=== PATIENT | female | born 1985 | race Caucasian/White ===

== ENCOUNTER 2018-03-15 18:32 | Emergency (ER) | payer OTHER ==
--- NOTE | 2018-03-15 19:29 | ED Physician Documentation ---
PD HPI SKIN - Stated complaint Stated Complaint: HOT CHEST/POST - Chief complaint Chief Complaint: General - History obtained from History obtained from: Patient - History of Present Illness Timing - onset: Today Timing - details: Abrupt onset Location: Other (4 days post and is breast feeding. Today has feeling of both breasts firm, hot, and tender, without feeling improved after child nurses. ) Quality / character: Painful, Swelling. No: Discolored Associated symptoms: Fever (today) Similar symptoms before: Has not had sx before Recently seen: Other ( 4 days ago without episiotomy. No dysuria. No diarrhea. Denies abd pain nor vaginal discharge purulent, and her locia drainage is decreasing.) Review of Systems Constitutional: reports: Fever Nose: denies: Rhinorrhea / runny nose, Congestion Throat: denies: Sore throat Respiratory: denies: Cough GI: denies: Vomiting, Diarrhea : denies: Dysuria, Frequency Skin: denies: Rash PD PAST MEDICAL HISTORY - Past Medical History Past Medical History: No - Past Surgical History Past Surgical History: No - Present Medications Home Medications: Ambulatory Orders Medication Instructions Recorded Confirmed Cephalexin [Keflex] 500 mg PO QID #28 capsule 03/15/18 Citalopram [CeleXA] 10 mg PO DAILY 03/15/18 03/15/18 oxyCODONE/ACET 5/325 [Percocet 5 03/15/18 mg/325 mg] - Allergies Allergies/Adverse Reactions: Allergies Allergy/AdvReac Type Severity Reaction Status Date / Time No Known Drug Allergies Allergy Verified 03/15/18 18:46 - Social History Does the pt smoke?: No Smoking Status: Never smoker Does the pt drink ETOH?: No Does the pt have substance abuse?: No - Immunizations Immunizations are current?: Yes PD ED PE NORMAL - Vitals Vital signs reviewed: Yes - General General: Alert and oriented X 3, No acute distress, Well developed/nourished - HEENT HEENT: Pharynx benign - Neck Neck: Supple, no meningeal sign, No adenopathy - Cardiac Cardiac: No murmur. No: RRR (tachy but regular) - Respiratory Respiratory: Clear bilaterally - Abdomen Abdomen: Soft, Non tender - Female Female : [employer] present (), Other (both breasts with firmness, and particular tenderness superior aspects of both. No redness per se, but does have warmth of skin bilaterally. normal nipple drainage, does not look purulent. ) - Back Back: No CVA TTP - Derm Derm: Normal color, Warm and dry, No rash Results - Vitals Vitals: Vital Signs - 24 hr 03/15/18 03/15/18 18:42 20:04 Temperature 37.9 C H 37.7 C H Heart Rate 115 H 107 H Respiratory 18 16 Rate Blood Pressure 145/82 H 136/91 H O2 Saturation 98 97 Oxygen O2 Source Room air PD MEDICAL DECISION MAKING - ED course Complexity details: considered differential (could consider engorgement with inflammation and could do extra pumping in addition to feeing if child not draining breasts enough, however does not account for fever, so that would decide that it is developing mastitis even though not focal redness per se. ), d /w patient - Sepsis Event Vital Signs: Vital Signs - 24 hr 03/15/18 03/15/18 18:42 20:04 Temperature 37.9 C H 37.7 C H Heart Rate 115 H 107 H Respiratory 18 16 Rate Blood Pressure 145/82 H 136/91 H O2 Saturation 98 97 Oxygen O2 Source Room air Departure - Departure Disposition: 01 Home, Self Care Clinical Impression: Acute mastitis Condition: Stable Record reviewed to determine appropriate education?: Yes Instructions: ED Breast Infec Follow-Up: BERTHA PEREZ DO [Primary Care Provider] - Prescriptions: Cephalexin [Keflex] 500 mg PO QID #28 capsule Comments: Warm moist towels to the breasts periodically. Continue breast-feeding. Use an anti-inflammatory such as ibuprofen 600 mg 3 times a day for the inflammation. Cephalexin as directed 4 times a day for the infection. Recheck if not improving over the next couple of days. Return sooner if sicker. Discharge Date/Time: 03/15/18 20:17
[2018-03-15] MEDS ORDERED: IBUPROFEN 600 MG TABLET PO STA (19:48)
[2018-03-15] MEDS ORDERED: cephALEXin 250 MG CAPSULE PO STA (19:49)
[2018-03-15 20:05] VITALS: BP 136/91
== END 2018-03-15 20:17 | disposition home or self-care (01) ==
LOC: ED 18:32
DX: O91.22 Nonpurulent mastitis associated with the puerperium (principal)
CPT/HCPCS: 99283; A9270

== ENCOUNTER 2022-04-29 11:36 | Emergency (ER) | payer OTHER ==
[2022-04-29] MEDS ORDERED: tiZANidine 4 MG TABLET PO STA (13:15)
[2022-04-29] MEDS ORDERED: TRIAMCINOLONE 40 MG/ML VIAL IM STA (13:15)
[2022-04-29] MEDS ORDERED: ACETAMINOPHEN 325 MG TABLET PO STA (13:15)
--- NOTE | 2022-04-29 13:50 | ED Physician Documentation ---
PD HPI BACK PAIN - Stated complaint Stated Complaint: NECK PX - Chief complaint Chief Complaint: General - History obtained from History obtained from: Patient - History of Present Illness Timing - onset: How many days ago (3) Timing - duration: Days (3) Timing - details: Abrupt onset (Awoke from sleep in the morning with pain in the left lower cervical to upper thoracic area radiating to the left shoulder. Has persisted despite topical treatment and ibuprofen.), Still present Location: Lower, Left Quality: Pain, Spasm, Aching Associated symptoms: Other (no radiation of the pain). No: Fever, Weakness, Numbness Worsened by: Movement, Twisting, Palpation Contributing factors: No: Twisting, Trauma Similar symptoms before: Has not had sx before Review of Systems Constitutional: denies: Fever, Chills Nose: denies: Rhinorrhea / runny nose, Congestion Throat: denies: Sore throat Cardiac: denies: Chest pain / pressure Respiratory: denies: Cough GI: denies: Abdominal Pain, Nausea, Vomiting Skin: denies: Rash, Lesions Neurologic: denies: Altered mental status, Headache PD PAST MEDICAL HISTORY - Past Medical History Cardiovascular: None Respiratory: None Endocrine/Autoimmune: None - Past Surgical History Past Surgical History: No - Present Medications Home Medications: Ambulatory Orders Medication Instructions Recorded Confirmed Citalopram [CeleXA] 10 mg PO DAILY 03/15/18 03/15/18 cephALEXin [Keflex] 500 mg PO QID #28 capsule 03/15/18 oxyCODONE/ACET 5/325 [Percocet 5 03/15/18 mg/325 mg] HYDROcod/ACETAM 5/325 [[place] 5/325] 1 ea PO Q6H PRN #20 tablet 04/29/22 tiZANidine [Zanaflex] 4 mg PO Q8H PRN #25 tablet 04/29/22 - Allergies Allergies/Adverse Reactions: Allergies Allergy/AdvReac Type Severity Reaction Status Date / Time No Known Drug Allergies Allergy Verified 03/15/18 18:46 - Social History Does the pt smoke?: No Smoking Status: Never smoker Does the pt drink ETOH?: No Does the pt have substance abuse?: No - Immunizations Immunizations are current?: Yes PD ED PE NORMAL - Vitals Vital signs reviewed: Yes - General General: Alert and oriented X 3, Well developed/nourished, Other (appears uncomfortable and holding neck stiffly, slightly cocked to the left. ) - Neck Neck: No bony TTP, No adenopathy, Other (left trapezius muscle tender mid to lower aspect, almost suprascapular. No rash nor redness. ) - Cardiac Cardiac: RRR, No murmur - Respiratory Respiratory: Clear bilaterally - Derm Derm: Normal color, Warm and dry - Neuro Neuro: Alert and oriented X 3, No motor deficit, No sensory deficit Results - Vitals Vitals: Oxygen O2 Source Room air PD MEDICAL DECISION MAKING - ED course Complexity details: considered differential (left lower neck lateral pain without red flags on history/exam. Can treat with meds. She has a very tedner trigger spot in muscle, so did trigger point injection with kenalog and marcaine after cleansing skin. ), d/w patient Departure - Departure Disposition: 01 Home, Self Care Clinical Impression: Acute upper back pain Condition: Stable Record reviewed to determine appropriate education?: Yes Instructions: ED Neck Pain No Trauma Follow-Up: BERTHA PEREZ DO [Primary Care Provider] - Prescriptions: HYDROcod/ACETAM 5/325 [[place] 5/325] 1 ea PO Q6H PRN #20 tablet PRN Reason: Pain tiZANidine [Zanaflex] 4 mg PO Q8H PRN #25 tablet PRN Reason: Spasms Comments: I would continue with the ibuprofen 600 mg 3 times daily with food. Local tr eatment such as massage and chiropractic are good as well as the topical Salonpas. We can add tizanidine muscle relaxant 3 times daily to help with spasms. Also add hydrocodone/acetaminophen every 6 hours if needed for pain. I also did injection in the tender muscle spot with a steroid medicine called triamcinolone. That should be effective for several days at least. Presumably the combination of this will improve your symptoms over the next several days with resolution over 3 to 5 days. Recheck if not improved in that timeframe. I sent your prescription to [facility] in [place]. I am prescribing a short course of narcotic pain medication for you. These are potentially dangerous and addictive medications that should be used carefully. These medications may constipate you. Take an epya-lja-dycmfji stool softener such as docusate twice daily with plenty of water while taking these medications. If you go 24 hours without a bowel movement, take aubv-jtu-nexuwgu MiraLAX, per package instructions. Do not drink or drive while taking these medications. If you received narcotic or sedating medications while in the emergency department do not drive for 24 hours. Store this medication in a safe, secure place and out of reach of children. It is a violation of federal law to give or sell this medication to another person or to use in a manner other than prescribed. The ED will not refill narcotic prescriptions, including prescriptions lost or stolen. You can dispose of unwanted medications at the [facility]'s office or at several pharmacies such as [facility]. Discharge Date/Time: 04/29/22 14:33
[2022-04-29 14:33] VITALS: BP 100/64
== END 2022-04-29 14:33 | disposition home or self-care (01) ==
LOC: ED 11:36
DX: M54.89 Other dorsalgia (principal)
CPT/HCPCS: 99283; 99284; A9270

== ENCOUNTER 2022-08-19 12:55 | Emergency (ER) | payer OTHER ==
[2022-08-19 13:31] LABS: RAPID STREP SCREEN Negative (Negative)
[2022-08-19 14:10] LABS: B. PARAPERTUSSIS- RESP PCR PAN NOT DETECTED; B. PERTUSSIS- RESP PCR PANEL NOT DETECTED; C. PNEUMONIAE- RESP PCR PANEL NOT DETECTED; CORONAVIRUS 229E-RESP PCR NOT DETECTED; CORONAVIRUS HKU1-RESP PCR NOT DETECTED; CORONAVIRUS NL63-RESP PCR NOT DETECTED; CORONAVIRUS OC43-RESP PCR NOT DETECTED; HUMAN METAPNEUMOVIRUS NOT DETECTED; INFLUENZA A- RESP PCR PANEL NOT DETECTED; INFLUENZA B - RESP PCR PANEL NOT DETECTED; M. PNEUMONIAE- RESP PCR PANEL NOT DETECTED; PARAINFLUENZA VIRUS 1 NOT DETECTED; PARAINFLUENZA VIRUS 2 DETECTED; PARAINFLUENZA VIRUS 3 NOT DETECTED; PARAINFLUENZA VIRUS 4 NOT DETECTED; RHINOVIRUS/ENTEROVIRUS NOT DETECTED; RSV- RESP PCR PANEL NOT DETECTED; SARS-CoV-2 -RESP PCR PANEL NOT DETECTED
--- NOTE | 2022-08-19 14:40 | ED Physician Documentation ---
PD HPI URI - Stated complaint Stated Complaint: SORE THROAT,COUGH,EAR PX - Chief complaint Chief Complaint: Heent - History obtained from History obtained from: Patient - History of Present Illness Timing - onset: How many weeks ago (1) Timing duration: Weeks (1) Timing details: Gradual onset Pain level max: 4 Pain level now: 4 Associated symptoms: Nasal congestion, Rhinorrhea, Dry cough. No: Fever Contributing factors: Sick contact - Additional information Additional information: 37-year-old female presents the emergency department with nasal congestion, cough, rhinorrhea. No fevers. No vomiting. No diarrhea. Denies any possibility of . No abdominal pain. Review of Systems Constitutional: denies: Fever Nose: reports: Rhinorrhea / runny nose, Congestion GI: denies: Vomiting, Diarrhea Skin: denies: Rash Musculoskeletal: denies: Neck pain, Back pain Neurologic: denies: Headache PD PAST MEDICAL HISTORY - Past Medical History Cardiovascular: None Respiratory: None Endocrine/Autoimmune: None - Past Surgical History Past Surgical History: No - Present Medications Home Medications: Ambulatory Orders Medication Instructions Recorded Confirmed Citalopram [CeleXA] 10 mg PO DAILY 03/15/18 03/15/18 cephALEXin [Keflex] 500 mg PO QID #28 capsule 03/15/18 oxyCODONE/ACET 5/325 [Percocet 5 03/15/18 mg/325 mg] HYDROcod/ACETAM 5/325 [[place] 5/325] 1 ea PO Q6H PRN #20 tablet 04/29/22 tiZANidine [Zanaflex] 4 mg PO Q8H PRN #25 tablet 04/29/22 Benzonatate [Tessalon] 200 mg PO TID PRN #30 cap 08/19/22 Cetirizine HCl/Pseudoephedrine 1 each PO BID PRN #30 tab 08/19/22 [Zyrtec-D Tablet] - Allergies Allergies/Adverse Reactions: Allergies Allergy/AdvReac Type Severity Reaction Status Date / Time No Known Drug Allergies Allergy Verified 08/19/22 13:06 - Social History Does the pt smoke?: No Smoking Status: Never smoker Does the pt drink ETOH?: No Does the pt have substance abuse?: No - Immunizations Immunizations are current?: Yes PD ED PE NORMAL - Vitals Vital signs reviewed: Yes - General General: Alert and oriented X 3, No acute distress - HEENT HEENT: Ears normal, Moist mucous membranes, Pharynx benign - Neck Neck: Supple, no meningeal sign - Cardiac Cardiac: RRR, Strong equal pulses - Respiratory Respiratory: No respiratory distress, Clear bilaterally - Abdomen Abdomen: Soft, Non tender, Non distended - Derm Derm: Warm and dry, No rash - Extremities Extremities: No edema, No calf tenderness / cord - Neuro Neuro: Alert and oriented X 3 - Psych Psych: Normal mood, Normal affect Results - Vitals Vitals: Vital Signs - 24 hr 08/19/22 08/19/22 13:05 14:59 Temperature 36.9 C 36.8 C Heart Rate 89 88 Respiratory 14 14 Rate Blood Pressure 137/82 H 130/80 O2 Saturation 96 98 Oxygen O2 Source Room air - Labs Labs: Laboratory Tests 08/19/22 08/19/22 13:10 13:10 Nasal Adenovirus (PCR) NOT DETECTED Nasal B. parapertussis DNA (PCR) NOT DETECTED Nasal Coronavir 229E PCR NOT DETECTED Nasal Coronavir HKU1 PCR NOT DETECTED Nasal Coronavir NL63 PCR NOT DETECTED Nasal Coronavir OC43 PCR NOT DETECTED Nasal Enterovir/Rhinovir PCR NOT DETECTED Nasal Influenza B PCR NOT DETECTED Nasal Influenza A PCR NOT DETECTED Nasal Parainfluen 1 PCR NOT DETECTED Nasal Parainfluen 2 PCR DETECTED A Nasal Parainfluen 3 PCR NOT DETECTED Nasal Parainfluen 4 PCR NOT DETECTED Nasal RSV (PCR) NOT DETECTED Nasal B.pertussis DNA PCR NOT DETECTED Nasal C.pneumoniae (PCR) NOT DETECTED Dom Human Metapneumo PCR NOT DETECTED Nasal M.pneumoniae (PCR) NOT DETECTED Nasal SARS-CoV-2 (PCR) NOT DETECTED Group A Strep Rapid Negative PD Medical Decision Making - ED course Complexity details: considered differential, d/w patient ED course: 37-year-old female positive for human metapneumovirus. She is very well- appearing, nontoxic. Afebrile. No hypoxia. No respiratory distress. We will place on decongestants and cough medication for home. We will continue supportive care. No evidence of pneumonia clinically. Patient counseled regard ing signs and symptoms for which I believe and urgent re-evaluation would be necessary. Patient with good understanding of and agreement to plan and is comfortable going home at this time This document was made in part using voice recognition software. While efforts are made to proofread this document, sound alike and grammatical errors may occur. Departure - Departure Disposition: 01 Home, Self Care Clinical Impression: Parainfluenza Condition: Good Instructions: ED Viral Syndrome Follow-Up: BERTHA PEREZ DO [Primary Care Provider] - Within 1 week Prescriptions: Benzonatate [Tessalon] 200 mg PO TID PRN #30 cap PRN Reason: Cough Cetirizine HCl/Pseudoephedrine [Zyrtec-D Tablet] 1 each PO BID PRN #30 tab PRN Reason: nasal congestion Comments: Please follow-up with your doctor for further care. Return if you worsen. You have tested positive for parainfluenza today which is a viral upper respiratory infection. Discharge Date/Time: 08/19/22 14:59
[2022-08-19 15:00] VITALS: BP 130/80
== END 2022-08-19 14:59 | disposition home or self-care (01) ==
LOC: ED 12:55
DX: B34.8 Other viral infections of unspecified site (principal); Z20.822 Contact with and (suspected) exposure to COVID-19
CPT/HCPCS: 87070; 87077; 87430; 87633; 99283

== ENCOUNTER 2023-04-29 19:34 | Outpatient (CLI) | payer OTHER | END 2023-04-29 19:35 | disposition home or self-care (01) | LOC: SC 19:34 | PROVIDERS: ATTEND Nurse Practitioner Family | DX: G47.33 Obstructive sleep apnea (adult) (pediatric) (principal); E66.9 Obesity, unspecified; Z68.30 Body mass index [BMI] 30.0-30.9, adult; R00.0 Tachycardia, unspecified; F32.A Depression, unspecified | CPT/HCPCS: 95810 ==

== ENCOUNTER 2023-05-28 14:13 | Outpatient (CLI) | payer OTHER ==
--- NOTE | 2023-05-28 14:29 | Sleep Patient Instructions ---
Sleep Center Visit Summary - Patient Visit Information Reason for Visit: Sleep study follow-up - Patient Instructions Additional Instructions: You are to start Positional therapy to control your sleep apnea. You may obtain positional belts or other commercial devices online. You may also use pillows to position yourself on your side or a T shirt with balls sewn into the back to help keep you on your side to sleep. We would like to follow up with you in a month to check effectiveness of therapy. Please call office to schedule a follow up appointment in the sleep care office [one month after obtaining new device]. - Clinic Information Contact: [facility] [address] [place] [email or web address] T: [phone]
--- NOTE | 2023-05-28 14:35 | SLEEP CARE CONSULTATION ---
Information from patient questionnaire entered by Alicia Troncoso. I have reviewed and concur with the information entered by Alicia Troncoso. This document represents the service I personally performed and the decisions made by , Lavinia Lee ARNP. History of Present Illness Service Date and Time: 05/28/2023 1413 Initial [place] Sleepiness Scale score: 13 (04/04/2023) Current [place] Sleepiness Scale score: 10 (05/28/23) Additional HPI information: ZELDA LUZ returns for follow up and results of the recently performed polysomnography. The sleep study showed mild obstructive sleep apnea with an average AHI of 6.3 and ronnie oxygen saturation of 87%. Cardiac monitoring showed NSR with occasional tachycardia. I explained the pathophysiology behind obstructive sleep apnea. We then spent quite a bit of time discussing different treatment options. For mild obstructive sleep apnea, surgery and oral appliance are alternatives to nasal CPAP therapy but in moderate or severe cases, nasal CPAP is the most effective and reliable treatment. Because apnea is primarily in supine position, then positional management therapy could be effective. Methods discussed such as positioning with pillows, using a T-shirt with tennis balls in the back or commercial products that have a pillow format on back to prevent supine sleep. I reviewed the impact of weight changes on sleep apnea and strongly recommended losing weight. Patient counseled not drink alcohol less than 4 hours before bedtime as it can increase snoring and apnea. Patient was cautioned about risks of drowsy driving until sleepiness symptoms resolve. Patient denies drowsy driving. Sleep Study - Results Type of Sleep Study: Polysomnography (COMPLETED 04/29/23) Prior sleep studies: No Polysomnography/Home Sleep Study results: IMPRESSION: The quality of the study is good. The patient had normal sleep efficiency. The sleep architecture was abnormal for sleep fragmentation and reduced amount of time spent in REM and slow wave sleep (N3). Respiratory monitoring showed mild obstructive sleep apnea-hypopnea (AHI = 6.3) associated with frequent arousals, oxyhemoglobin desaturation and mild hypoxia (ronnie oxygen saturation of 87%). The respiratory events occurred almost exclusively during supine sleep (supine AHI = 8.8; non-supine = 1.59). Snore was light to moderate in intensity. There was no significant periodic leg movement of sleep. Cardiac rhythm was normal sinus rhythm with occasional tachycardia (maximum heart rate of 119 beats per minute). No abnormal behavior (parasomnia) observed during the night. Allergies and Home Medications Known drug allergies: No Drug allergies reviewed: Yes Home medication list reviewed: Yes (no changes) Allergy and home medication list: Allergies No Known Drug Allergies Allergy (Verified 05/27/23 15:08) Review of Systems Review of systems same as previous: Yes (no changes) Physical Exam Vital signs obtained and entered by: ALICIA Geiger MA Blood Pressure: 126/78 (LEFT ARM) Cuff size: regular Heart Rate: 110 O2 Saturation: 9 Height: 5 ft 3 in Weight: 170 lb 12.8 oz Body Mass Index: 30.2 BMI Classification: Obese Impression and Plan 1. Obstructive Sleep Apnea-Hypopnea Syndrome, mild, with lowest oxygen saturation of 87%. Obviously this is the cause of the patients symptoms of unrefreshed sleep, and excessive daytime sleepiness. Positive pressure therapy could benefit anxiety and depression. Since patients apnea is primarily in supine position, patient advised to try positional therapy and agreed with plan. She is also advised to lose weight as this will reduce snoring and apnea. Follow up is scheduled for 1-2 months to check effectiveness and if further evaluation indicated. 2. Hypoxemia, mild, with a ronnie oxygen saturation of 87% and 0.5 minutes spent under 90%. The baseline oxygen saturation was normal with an average oxygen saturation of 94%. 3. Normal sinus rhythm with occasional tachycardia. Maximum heart rate noted at 119 bpm during sleep study. Patient advised to follow-up with primary care for further testing as necessary. * Positional therapy * Followup PCP for occasional tachycardia * Attempt to lose weight. * Avoid alcohol consumption near bedtime. * Avoid supine sleep. * The patient is again cautioned about driving until sleepiness completely resolves. * Return in 1-2 months. I will assess response to therapy at that time. Counseling Topics: Sleeping position, Weight loss health impact Follow up with Sleep Care in: 1-2 months (positional therapy) Visit Type: In Office Time Spent with Patient (minutes): 21 Provider Statement: I spent 100% of the Face to Face Visit with the patient with greater than 50% spent counseling the patient and coordination of care.
[2023-05-28 14:41] VITALS: BP 126/78; O2SAT 9
== END 2023-05-28 14:14 | disposition home or self-care (01) ==
LOC: SC 14:13
PROVIDERS: ATTEND Nurse Practitioner Family
DX: G47.33 Obstructive sleep apnea (adult) (pediatric) (principal); R09.02 Hypoxemia; R00.0 Tachycardia, unspecified; E66.9 Obesity, unspecified; Z68.30 Body mass index [BMI] 30.0-30.9, adult
CPT/HCPCS: 99212; 99213

== ENCOUNTER 2023-07-01 11:57 | Emergency (ER) | payer OTHER ==
[2023-07-01 12:16] VITALS: BP 120/69; O2SAT 97
--- NOTE | 2023-07-01 12:46 | XRAY Report ---
PROCEDURE: Wrist 4 View RT INDICATIONS: Trauma TECHNIQUE: 4 views of the wrist were acquired. COMPARISON: None. FINDINGS: Bones: No fractures or dislocations. No suspicious bony lesions. Soft tissues: No suspicious soft tissue calcifications or masses. IMPRESSION: No acute bony abnormality. If there is anatomic snuff box tenderness, consider wrist immobilization a nd repeat radiographs in 10-14 days or cross-sectional imaging now. If pain persists with conservativ e management, consider repeat radiographs in 10-14 days or cross-sectional imaging. Reviewed by: Clay Tatum MD on 07/01/2023 12:44 PM PST Approved by: Clay Tatum MD on 07/01/2023 12:44 PM PST Station ID: [id number]
--- NOTE | 2023-07-01 12:46 | XRAY Report ---
PROCEDURE: Hand 3+V RT INDICATIONS: Trauma TECHNIQUE: 3 views of the hand(s) acquired. COMPARISON: None. FINDINGS: Bones: No fractures or dislocations. No suspicious bony lesions. Soft tissues: No suspicious soft tissue calcifications or masses. IMPRESSION: No acute bony abnormality. If pain persists with conservative management, consider repeat radiographs in 10-14 days or cross-sectional imaging. Reviewed by: Clay Tatum MD on 07/01/2023 12:45 PM PST Approved by: Clay Tatum MD on 07/01/2023 12:45 PM PST Station ID: [id number]
--- NOTE | 2023-07-01 12:59 | ED Physician Documentation ---
History of Present Illness - Stated complaint Stated Complaint: RT HAND SWELLING,PX - Chief complaint Chief Complaint: Ext Problem - Additonal information Additional information: Patient 37-year-old female presenting to the emergency department with right wrist and finger pain. Reports pain started approximately 1-1/2 weeks ago. Has been getting progressively worse over that time. It does not remember any specific traumatic event. No fevers, redness, heat or swelling associated with the hand. 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 Review of Systems Constitutional: denies: Fever Eyes: denies: Loss of vision Ears: denies: Loss of hearing Nose: denies: Rhinorrhea / runny nose Throat: denies: Dental pain / toothache Cardiac: denies: Chest pain / pressure Respiratory: denies: Dyspnea GI: denies: Abdominal Pain PD PAST MEDICAL HISTORY - Past Medical History Past Medical History: Yes Cardiovascular: None Respiratory: None Neuro: None Endocrine/Autoimmune: None GI: None BOTTOM CEMENTER: None : None HEENT: None Psych: Anxiety Musculoskeletal: None Derm: None - Past Surgical History Past Surgical History: Yes Ortho: ACL reconstruction - Present Medications Home Medications: Ambulatory Orders Medication Instructions Recorded Confirmed Lamotrigine 200 mg ORAL DAILY 04/03/23 07/01/23 Citalopram Hydrobromide [Celexa] 20 mg ORAL DAILY 07/01/23 07/01/23 Ibuprofen [Motrin] 800 mg PO Q8H PRN #30 tablet 07/01/23 - Allergies Allergies/Adverse Reactions: Allergies Allergy/AdvReac Type Severity Reaction Status Date / Time No Known Drug Allergies Allergy Verified 07/01/23 12:07 - Social History Does the pt smoke?: No Smoking Status: Former smoker Does the pt drink ETOH?: No Does the pt have substance abuse?: No - Immunizations Immunizations are current?: Yes PD ED PE NORMAL - General General: Alert and oriented X 3 - HEENT HEENT: Atraumatic - Respiratory Respiratory: No respiratory distress - Extremities Extremities: Other (Soft tissue swelling to the base of the right index finger without erythema or rubor.) Results - Vitals Vitals: Vital Signs - 24 hr 07/01/23 12:07 Temperature 36.4 C L Heart Rate 99 Respiratory 16 Rate Blood Pressure 120/69 O2 Saturation 97 Oxygen O2 Source Room air PD Medical Decision Making - ED course Complexity details: reviewed results, d/w patient ED course: Patient 37-year-old female presenting with swelling and pain at the wrist and hand. Symptoms ongoing x 1-1/2 weeks. No specific traumatic event. X-rays negative for fracture. There is no specific anatomic snuffbox tenderness although there is some mild soft tissue swelling at the base of the right second finger. There is normal capillary refill and easily palpable pulses. There is no fusiform swelling or indications of tendinopathy. Will provide wrist splint and course nonsteroidal anti-inflammatory medications. Will have patient follow-up with primary care. Clear return precautions given. Departure - Departure Disposition: Home, Self Care Clinical Impression: Hand pain, right Wrist pain Qualifiers: Laterality: right Qualified Code(s): M25.531 - Pain in right wrist Prescriptions: Ibuprofen [Motrin] 800 mg PO Q8H PRN #30 tablet PRN Reason: PAIN &/OR FEVER Comments: Thank you for allowing us to care for you today [facility]. The x-rays taken today did not show any acute fracture to your hand. I would like you to use the wrist splint provided here in the emergency department and start a course of strong nonsteroidal anti-inflammatory medications. Please rest your wrist And hand is much as possible for the next few days. Keeping the injured extremity elevated and applying ice packs are also excellent strategies for decreasing swelling and thereby decreasing pain. Please contact your primary care doctor today in order to make an appointment for follow-up and reevaluation. If it anytime you have new or worsening symptoms such as increasing pain or signs of developing infection such as redness, heat, fever or worsening swelling please return to the emergency department.
== END 2023-07-01 13:10 | disposition home or self-care (01) ==
LOC: ED 11:57
DX: M25.531 Pain in right wrist (principal); M79.641 Pain in right hand; Z87.891 Personal history of nicotine dependence
CPT/HCPCS: 99283